=== PATIENT | male | born 1965 | race African-American/Black ===

== ENCOUNTER 2018-05-04 10:28 | Emergency (ER) | payer MEDICAID, OTHER ==
[~2018-05-04] VITALS: Ht 170.2 cm; Wt 79.5 kg
[2018-05-04 10:58] VITALS: BP 131/79
== END 2018-05-04 11:13 | disposition home or self-care (01) ==
LOC: ER 10:54
DX: E11.9 Type 2 diabetes mellitus without complications (principal); K59.00 Constipation, unspecified; R03.0 Elevated blood-pressure reading, without diagnosis of hypertension
CPT/HCPCS: 99283